=== PATIENT | female | born 1985 | race Caucasian/White ===

== ENCOUNTER 2018-11-10 20:47 | Emergency (ER) | payer MEDICAID ==
[~2018-11-10] VITALS: Ht 160 cm; Wt 99.8 kg
[2018-11-10 20:54] VITALS: BP_SYST 146
[2018-11-11] MEDS ORDERED: ACETAMINOPHEN 500 MG TABLET PO ONE (01:30)
[2018-11-11] MEDS ORDERED: AZITHROMYCIN 250 MG TABLET PO ONE (01:30)
[2018-11-11] MEDS ORDERED: HYDROcodone/ACETAMIN 5-325 MG TAB (NORCO/ VICODIN) PO ONE (02:30)
[2018-11-11 02:40] VITALS: BP_SYST 126
== END 2018-11-11 02:40 | disposition home or self-care (01) ==
LOC: SED 20:47
DX: H66.92 Otitis media, unspecified, left ear (principal); I88.9 Nonspecific lymphadenitis, unspecified
CPT/HCPCS: 99283; Q0144

== ENCOUNTER 2019-04-01 07:47 | Day surgery (SDC) | payer MEDICAID ==
[~2019-04-01] VITALS: Ht 157.5 cm; Wt 99.8 kg
[2019-04-01] MEDS ORDERED: fentaNYL CITRATE/PF 100 MCG/2 ML AMP IVP PRN (09:45)
[2019-04-01] MEDS ORDERED: ONDANSETRON HCL 4 MG/2 ML VIAL IVP PRN (09:45)
[2019-04-01] MEDS ORDERED: LR 1,000 ML IV.SOLN IV ONE (09:55)
[2019-04-01] MEDS ORDERED: PROPOFOL 200MG/ 20ML VIAL (DIPRIVAN) IV ONE (09:55)
[2019-04-01] MEDS ORDERED: MIDAZOLAM HCL 5 MG/ML VIAL (VERSED) IV ONE (09:55)
[2019-04-01] MEDS ORDERED: SEVOFLURANE 15 MIN GAS INH ONE (09:55)
[2019-04-01] MEDS ORDERED: CEFAZOLIN 2 GM IVPB PREMIX 50 ML IV ONE (09:55)
[2019-04-01] MEDS ORDERED: fentaNYL CITRATE/PF 100 MCG/2 ML AMP ONE ×2 (09:55→10:33)
[2019-04-01] MEDS: fentaNYL CITRATE/PF 100 MCG/2 ML AMP IVP PRN ×2 (10:22→10:40)
[2019-04-01] MEDS ORDERED: KETOROLAC TROMETHAMINE 30 MG VIAL IVP ONE (11:00)
[2019-04-01] MEDS ORDERED: KETOROLAC TROMETHAMINE 30 MG VIAL ONE (11:01)
[2019-04-01 12:12] VITALS: BP_SYST 104
== END 2019-04-01 13:05 | disposition home or self-care (01) ==
LOC: SDS 07:47 → SMU 07:47 → SDS 13:05
PROVIDERS: ATTEND Obstetrics & Gynecology
DX: T83.32XA Displacement of intrauterine contraceptive device, initial encounter (principal); Z90.49 Acquired absence of other specified parts of digestive tract; Y83.8 Other surgical procedures as the cause of abnormal reaction of the patient, or of later complication, without mention of misadventure at the time of the procedure
CPT/HCPCS: 58562; J0690; J1885; J2250; J2704; J3010; J7120